=== PATIENT | female | born 1975 | race Caucasian/White ===

== ENCOUNTER → 2017-12-16 07:38 | Outpatient (CLI) | payer OTHER, SELFPAY ==
--- NOTE | 2017-12-16 07:43 | HPBI_ITS ---
MAMMOGRAPHY - BILATERAL SCREENING 3-D NEHA SYNTHESIS REASON FOR EXAM: Female, 42 years old. Bilateral Screening 3-D tomosynthesis PERTINENT HISTORY: No significant family history. TECHNIQUE: 2-D mammograms and 3-D Neha synthesis of the breast (s) were performed. CAD was performed. COMPARISON: None. FINDINGS: The breast composition is composed of scattered fibroglandular density. Scattered benign calcifications are seen. No dense spiculated masses or suspicious microcalcifications are identified. No architectural distortion is identified. There is no skin thickening or retraction. There has been no significant change since the prior study. HPBI/SCREENING MAMM (CAD), BILAT IMPRESSION: No mammographic signs of malignancy. Routine yearly mammograms recommended. ASSESSMENT CATEGORY: BIRADS Category 2: Benign. A letter regarding these results will be sent to the patient by the facility within 30 days. FOLLOW UP RECOMMENDATION: Yearly follow up mammogram recommended. (A) Approximately 10% of breast cancers are not detected by mammography. A normal mammogram should not delay biopsy of a clinically suspicious abnormality. Electronically Signed: Wayne Arellano MD at 10:04 EDT , Service support ,
== END ==
PROVIDERS: Family Provider Family Medicine; PCP Family Medicine; Visit Provider Obstetrics & Gynecology
DX: Z12.31 Encounter for screening mammogram for malignant neoplasm of breast (principal)
CPT/HCPCS: 77063; 77067

== ENCOUNTER → 2018-04-10 07:23 | Outpatient (CLI) | payer OTHER, SELFPAY ==
[2018-04-10 10:10] LABS: Absolute Neutrophil Count 6.1 X10^3/uL (2.0-7.7); Eosinophil# 0.38 X10^3/uL; Eosinophils% 3.7 % (0-5); Hematocrit 43.4 % (37-47); Hemoglobin 14.8 g/dl (12.0-15.0); Lymphocyte % 25.5 % (19-41); Mean Corp Hgb Conc 34.1 g/gl (32-36); Mean Corpuscular Hgb 29.9 pg (27.0-32.0); Mean Corpuscular Volume 87.7 fL (81-99); Mean Platelet Vol. 10.7 fl (6.2-12.0); Monocyte# 0.94 X10^3/uL; Monocyte% 9.2 % (0-10); Neutrophil # 6.11 X10^3/uL (2.7-7.7); Neutrophil % 60.1 % (47-70); Platelet Count 414 K/mm3 (150-450); RBC Distribution Width CV 14.4 % (11.6-14.6); Red Blood Count 4.95 M/mm3 (4.2-5.4); White Blood Count 10.2 K/mm3 (4.4-11.0)
[2018-04-10 10:13] LABS: POSITIVE COUNT NO; POSITIVE DIFFERENTIAL NO; POSITIVE MORPHOLOGY NO
[2018-04-10 10:39] LABS: ALB/GLOB Ratio 0.8 RATIO (0.9-2.4); AST(SGOT) 25 U/L (15-37); Alanine Aminotransfer ALT/SGPT 43 U/L (13-56); Albumin, Serum 3.5 g/dL (3.2-5.0); Alkaline Phosphatase 81 U/L (45-117); Anion Gap 8 (5-15); BUN 8 mg/dL (7-18); BUN/Creat Ratio 12.2 RATIO (10-20); Calcium,Total 8.8 mg/dL (8.5-10.1); Chloride 108 mmol/L (98-107); Creatinine, Serum 0.66 mg/dL (0.55-1.02); EST Glomerular Filtration Rate 104 mL/min (>60); Est Glom Filt Rate - Afr Amer 126 mL/min (>60); Globulin 4.5 g/dL (2.2-4.2); Glucose 91 mg/dL (74-106); Iron 69 ug/dL (50-170); Potassium 3.9 mmol/L (3.5-5.1); Sodium Level 139 mmol/L (136-145); T4 Free Direct 1.28 ng/dL (0.76-1.46); Thyroid Stim Hormone (TSH) 1.36 uIU/mL (0.358-3.74)
[2018-04-11 08:10] LABS: Vitamin B12 527 pg/mL (211-911); Vitamin D,25 Hydroxy 20.3 ng/mL (29.95-100.01)
== END ==
PROVIDERS: Family Provider Family Medicine; PCP Family Medicine; Visit Provider Family Medicine
DX: R53.83 Other fatigue (principal); E03.9 Hypothyroidism, unspecified; E78.5 Hyperlipidemia, unspecified; E55.9 Vitamin D deficiency, unspecified; E53.8 Deficiency of other specified B group vitamins; D50.9 Iron deficiency anemia, unspecified
CPT/HCPCS: 36415; 80053; 82306; 82607; 83540; 84439; 84443; 85025

== ENCOUNTER → 2018-07-02 08:51 | Outpatient (CLI) | payer OTHER, SELFPAY ==
--- NOTE | 2018-07-02 08:57 | BD_ITS ---
STUDY: DUAL ENERGY X-RAY ABSORPTIOMETRY / DXA REASON FOR EXAM: Female, 43 years old. Hormone replacement TECHNIQUE: Bone Mineral Density (BMD) measurements of lumbar spine and bilateral hips were obtained. COMPARISON: None. FINDINGS: Lumbar Spine (L1-L4): g/cm2 (0.996) / T-score (-1.7) / Z-score (-1.7) Findings are suggestive of osteopenia with a moderate fracture risk. Left Femur Total: g/cm2 (1.186) / T-score (1.4) / Z-score (1.7) Left Femoral Neck: g/cm2 (0.978) / T-score (-0.4) / Z-score (0.1) Right Femur Total: g/cm2 (1.204) / T-score (1.6) / Z-score (1.8) Right Femoral Neck: g/cm2 1.016) / T-score (-0.2) / Z-score (0.4) BD/Dexa Bone Density Study IMPRESSION: The patient is considered normal as outlined below according to World [place] Organization (WHO) criteria with a low fracture risk. Reference Information: The T-score is the number of standard deviations above or below the standard which is normal for young adults at their peak bone mineral density. The World Health Organization (WHO) interprets the T-scores as follows: Above -1 Normal bone density Between -1 and -2.5 Osteopenia Equal to / or below -2.5 Osteoporosis As a practical clinical guideline, osteopenia may be graded as follows: Mild -1 through -1.5 Moderate -1.6 through -2.0 Severe -2.1 through -2.4 The Z-score is the number of standard deviations above or below age-matched controls. A Z-score of less than -1.5 would be considered abnormal. References: 1. NIH Osteoporosis and Related Bone Diseases http://www.osteo.org 2. International Society for Clinical Densitometry http://www.iscd.org 3. National Osteoporosis Foundation http://www.nof.org Electronically Signed: Wayne Arellano MD at 10:18 EDT , Service support ,
== END ==
PROVIDERS: Family Provider Family Medicine; PCP Family Medicine; Referring Provider Obstetrics & Gynecology; Visit Provider Obstetrics & Gynecology
DX: Z13.820 Encounter for screening for osteoporosis (principal); N91.2 Amenorrhea, unspecified; Z79.3 Long term (current) use of hormonal contraceptives
CPT/HCPCS: 77080

== ENCOUNTER → 2018-11-01 09:38 | Outpatient (CLI) | payer OTHER, SELFPAY ==
--- NOTE | 2018-11-01 | LES_PTH ---
PATIENT: LEILA CROW LOC: [facility] U#:[id number] AGE/SX: 50/F ROOM: RE11/01/[address]: Dr. Henrry Bo MD : 1975 BED: DIS: SPEC #: [id number] RECD: 11/01/18 17:17 STATUS: AKOSUA RE #: [id number] SAHARA: 11/01/18 00:[address]: Henrry Bo DEPT: SURGICAL PATHOLOGY RECD BY: Ihsan Colin ENTERED: 11/03/18 08:09 SP TYPE: Lesion OTHR DR: MD Dr. Jodi Braxton DO Tissues: Skin of back, NOS Procedures: Surgery Specimen Level IV Comments: @ Ordering doctor for SUIV edited from to @ by RGOOD at 11/11/18 1005 @ Submitting doctor edited from to DR.[email or web address] Jin by RGOOD at 11/11/18 1005 HEADER OPERATION: Not noted PRE-OP DIAGNOSIS: Enlarging lesion left upper back TISSUE SUBMITTED: Left upper back MICROSCOPIC DIAGNOSIS Left upper back lesion, shave biopsy: Consistent with lentigo. Focal minimal dermal fibrosis. Negative for malignancy. SJ:kisha 11/04/18 COMMENT Multiple levels are examined. Clinical correlation and appropriate follow up are necessary. This case has been reviewed in consultation with Dr. Lamas who concurs with the above diagnosis. MICROSCOPIC DESCRIPTION Slides are reviewed. GROSS DESCRIPTION Received in fixative is one container labeled with the patient's name and designated lesion left upper back. The specimen consists of a light saucedo shave biopsy of skin measuring 0.7 x 0.5 x <0.1 cm. The specimen is inked and totally submitted in one cassette for postfixation sectioning. / AM:kisha 11/03/18 TC:5 CPT: 37981
== END ==
PROVIDERS: PCP Family Medicine; Visit Provider Surgery
DX: L98.9 Disorder of the skin and subcutaneous tissue, unspecified (principal)
CPT/HCPCS: 88305

== ENCOUNTER → 2019-03-09 11:39 | Outpatient (CLI) | payer OTHER, SELFPAY ==
[2018-11-12 17:14] VITALS: BMI 45.3
--- NOTE | 2019-03-09 11:43 | BI_ITS ---
MAMMOGRAPHY - BILATERAL SCREENING REASON FOR EXAM: Female, 43 years old. Routine annual screening examination. PERTINENT HISTORY: Non-contributory. History of bilateral breast reduction surgery. TECHNIQUE: Digital bilateral breast neha (3D mammographic acquisition) in the CC and MLO projections. 2-D mediolateral oblique (MLO) and craniocaudad (CC) views of both breasts were obtained. CAD: Full Field Digital Mammography with Computer Added Detection was performed. COMPARISON: Comparison is made with prior study December 16, 2017. FINDINGS: Breast Composition: The breasts are almost entirely fatty. There are no dominant masses or suspicious calcifications. Dense linear calcification seen in the upper outer quadrant of the right breast most likely secondary to postsurgical changes. No mass lesion or cluster of microcalcifications present. No other significant abnormalities are identified. There has been no significant change since the prior study. BI/SCREEN MAMM (CAD) W/NEHA BILAT IMPRESSION: Stable bilateral screening mammogram. Yearly follow-up mammogram recommended. (A) ASSESSMENT CATEGORY: BIRADS Category 2: Benign. A letter regarding these results will be sent to the patient by the facility within 30 days. Approximately 10% of breast cancers are not detected by mammography. A normal mammogram should not delay biopsy of a clinically suspicious abnormality. [id number] Electronically Signed: Olvin Valencia, at 13:11 EDT , Service support ,
== END ==
PROVIDERS: Family Provider Family Medicine; PCP Family Medicine; Visit Provider Obstetrics & Gynecology
DX: Z12.31 Encounter for screening mammogram for malignant neoplasm of breast (principal)
CPT/HCPCS: 77063; 77067

== ENCOUNTER → 2019-04-08 16:21 | Outpatient (CLI) | payer OTHER, SELFPAY ==
[2018-11-12 17:14] VITALS: BMI 45.3
--- NOTE | 2019-04-08 17:04 | RAD_ITS ---
STUDY: X-RAY - THORACIC SPINE REASON FOR EXAM: Female, 44 years old. Back pain. TECHNIQUE: 2 view(s) of the thoracic spine were obtained. COMPARISON: None. FINDINGS: Normal kyphosis of the thoracic spine. There is no substantial scoliosis. There is multilevel endplate spondylosis of the thoracic vertebrae. There is multilevel disc space narrowing of the thoracic spine. No fractures or dislocations. The soft tissue structures are unremarkable. RAD/Thoracic Spine 2 Views IMPRESSION: No acute abnormality. Mild degenerative changes. Electronically Signed: Fabrizio Wylie MD at 21:43 EDT , Service support ,
== END ==
PROVIDERS: Family Provider Family Medicine; PCP Family Medicine; Referring Provider Family Medicine; Visit Provider Family Medicine
DX: M54.9 Dorsalgia, unspecified (principal); M25.519 Pain in unspecified shoulder
CPT/HCPCS: 72070

== ENCOUNTER → 2019-05-01 14:38 | Outpatient (CLI) | payer OTHER, SELFPAY ==
[2019-05-01 07:34] VITALS: BMI 45.3
[2019-05-01 15:46] LABS: Bacteria 0 SEEN /hpf (None Seen); Mucous, Urine 0 SEEN /hpf (<or=2+); Red Blood Cells-Urine 0 SEEN /hpf (0-5); Squamous Epithelial Cells - UA 0 SEEN /hpf (5-10); White Blood Cells 0 SEEN /hpf (0-5)
[2019-05-01 16:00] LABS: Color, Urine Yellow (Yellow); Glucose, Dipstick Normal (Normal); Ketone-Dipstick Negative (Negative); Leukocyte Esterase-Dipstick Negative /ul (Negative); Nitrite-Dipstick Negative (Negative); Occult Blood-Urine 10 /ul (Negative); Protein-Dipstick Negative (Negative); Specific Gravity, Urine 1.015 (1.002-1.030); Urine Bilirubin Dipstick Negative (Negative); Urine Clarity Clear (Clear); Urine Urobilinogen Normal (Normal)
== END ==
PROVIDERS: Family Provider Family Medicine; PCP Family Medicine; Referring Provider Physician Assistant Surgical; Visit Provider Physician Assistant Surgical
DX: N30.90 Cystitis, unspecified without hematuria (principal)
CPT/HCPCS: 81001; 87086; 87088

== ENCOUNTER → 2019-06-15 07:28 | Outpatient (CLI) | payer OTHER, SELFPAY ==
[2019-05-01 07:34] VITALS: BMI 45.3
[2019-06-15 10:09] LABS: Absolute Lymphocyte Count 2.68 X10^3/uL (0.83-4.51); Absolute Neutrophil Count 4.5 X10^3/uL (2.0-7.7); Basophil% 1.2 % (0-1); Eosinophil# 0.12 X10^3/uL; Eosinophils% 1.4 % (0-5); Hematocrit 44.9 % (37-47); Lymphocyte # 2.68 X10^3/ul (4.0); Lymphocyte % 32.1 % (19-41); Mean Corp Hgb Conc 33.4 g/dL (32-36); Mean Corpuscular Hgb 29.7 pg (27.0-32.0); Mean Corpuscular Volume 88.9 fL (81-99); Mean Platelet Vol. 11.1 fl (6.2-12.0); Monocyte# 0.87 X10^3/uL; Monocyte% 10.4 % (0-10); NRBC Flagged by Analyzer 0 % (0-5); Neutrophil # 4.54 X10^3/uL (2.7-7.7); Neutrophil % 54.4 % (47-70); Platelet Count 347 K/mm3 (150-450); RBC Distribution Width CV 13.7 % (11.6-14.6); RBC Distribution Width SD 44.4 fl (35.1-43.9); Red Blood Count 5.05 M/mm3 (4.2-5.4); White Blood Count 8.4 K/mm3 (4.4-11.0)
[2019-06-15 10:32] LABS: ALB/GLOB Ratio 1.1 RATIO (0.9-2.4); AST(SGOT) 30 U/L (15-37); Alanine Aminotransfer ALT/SGPT 51 U/L (13-56); Albumin, Serum 3.7 g/dL (3.2-5.0); Alkaline Phosphatase 91 U/L (45-117); Anion Gap 9 (5-15); BUN 8 mg/dL (7-18); Chloride 108 mmol/L (98-107); Cholesterol 187 mg/dL (200); Creatinine, Serum 0.72 mg/dL (0.55-1.02); EST Glomerular Filtration Rate 92 mL/min (>60); Est Glom Filt Rate - Afr Amer 112 mL/min (>60); Globulin 3.5 g/dL (2.2-4.2); Glucose 85 mg/dL (74-106); High Density Lipoprotein 39 mg/dL; Potassium 4.2 mmol/L (3.5-5.1); Protein, Total 7.2 g/dL (6.4-8.2); Sodium Level 141 mmol/L (136-145); T4 Free Direct 1.69 ng/dL (0.76-1.46); Thyroid Stim Hormone (TSH) 0.71 uIU/mL (0.358-3.74); Triglycerides 125 mg/dL; Very Low Density Lipoprotein 25 mg/dL (5-40)
[2019-06-15 10:53] LABS: Vitamin D,25 Hydroxy 60.3 ng/mL (29.95-100.01)
== END ==
PROVIDERS: Family Provider Family Medicine; PCP Family Medicine; Referring Provider Family Medicine; Visit Provider Family Medicine
DX: Z00.00 Encounter for general adult medical examination without abnormal findings (principal); E03.9 Hypothyroidism, unspecified; E55.9 Vitamin D deficiency, unspecified; R53.83 Other fatigue
CPT/HCPCS: 36415; 80053; 80061; 82306; 84439; 84443; 84481; 85025

== ENCOUNTER → 2019-08-16 15:25 | Outpatient (CLI) | payer OTHER, SELFPAY ==
[2019-08-16 09:55] VITALS: BMI 45.3
[2019-08-16 15:35] LABS: Color, Urine Yellow (Yellow); Glucose, Dipstick Normal (Normal); Ketone-Dipstick 5 mg/dl (Negative); Leukocyte Esterase-Dipstick 500 /ul (Negative); Nitrite-Dipstick Positive (Negative); Occult Blood-Urine 150 /ul (Negative); Protein-Dipstick 100 mg/dl (Negative); Urine Clarity Sl. Cloudy (Clear); Urine Urobilinogen Normal (Normal)
[2019-08-16 15:41] LABS: Urine Bilirubin Dipstick 1 mg/dL (Negative)
[2019-08-16 15:43] LABS: White Blood Cells 50-100 SEEN /hpf (0-5)
[2019-08-16 15:44] LABS: Bacteria 3+ /hpf (None Seen); Mucous, Urine 3+ /hpf (<or=2+); Red Blood Cells-Urine 0-5 SEEN /hpf (0-5); Squamous Epithelial Cells - UA 25-50 SEEN /hpf (5-10)
== END ==
PROVIDERS: Family Provider Family Medicine; PCP Family Medicine; Visit Provider Physician Assistant Medical
DX: R10.9 Unspecified abdominal pain (principal); R39.15 Urgency of urination
CPT/HCPCS: 81001; 87077; 87086; 87088; 87186

== ENCOUNTER → 2020-03-28 10:43 | Outpatient (CLI) | payer OTHER, SELFPAY ==
[2019-08-16 09:55] VITALS: BMI 45.3
--- NOTE | 2020-03-28 10:46 | BI_ITS ---
MAMMOGRAPHY - BILATERAL SCREENING REASON FOR EXAM: Female, 44 years old. Routine annual screening examination. PERTINENT HISTORY: Non-contributory. History of prior bilateral breast reduction surgery. TECHNIQUE: Digital bilateral breast neha (3D mammographic acquisition) in the CC and MLO projections. 2-D mediolateral oblique (MLO) and craniocaudad (CC) views of both breasts were obtained. CAD: Full Field Digital Mammography with Computer Added Detection was performed. COMPARISON: Comparison is made with prior study dated March 09, 2019 and December 16, 2017. FINDINGS: Breast Composition: The breasts are almost entirely fatty. There are no dominant masses or suspicious calcifications. Stable dense linear calcification in the upper outer quadrant of the right breast most likely secondary to postoperative changes. Stable benign-appearing bilateral axillary lymph nodes. No other significant abnormalities are identified. There has been no significant change since the prior study. BI/SCREEN MAMM (CAD) W/NEHA BILAT IMPRESSION: Stable bilateral screening mammogram. Yearly follow-up mammogram recommended. (A) ASSESSMENT CATEGORY: BIRADS Category 2: Benign. A letter regarding these results will be sent to the patient by the facility within 30 days. Approximately 10% of breast cancers are not detected by mammography. A normal mammogram should not delay biopsy of a clinically suspicious abnormality. [id number] Electronically Signed: Olvin Valencia, at 12:57 EDT , Service support ,
== END ==
PROVIDERS: PCP Family Medicine; Referring Provider Obstetrics & Gynecology; Visit Provider Obstetrics & Gynecology
DX: Z12.31 Encounter for screening mammogram for malignant neoplasm of breast (principal)
CPT/HCPCS: 77063; 77067

== ENCOUNTER → 2020-06-13 07:37 | Outpatient (CLI) | payer OTHER, SELFPAY ==
[2019-08-16 09:55] VITALS: BMI 45.3
[2020-06-13 09:50] LABS: Absolute Lymphocyte Count 2.81 X10^3/uL (0.83-4.51); Absolute Neutrophil Count 5.1 X10^3/uL (2.0-7.7); Basophil# 0.08 X10^3/uL; Basophil% 0.9 % (0-1); Eosinophils% 2.2 % (0-5); Hematocrit 43.5 % (37-47); Hemoglobin 14.5 g/dL (12.0-15.0); Lymphocyte # 2.81 X10^3/ul (4.0); Lymphocyte % 30.8 % (19-41); Mean Corp Hgb Conc 33.3 g/dL (32-36); Mean Corpuscular Hgb 29.5 pg (27.0-32.0); Mean Corpuscular Volume 88.6 fL (81-99); Mean Platelet Vol. 10.6 fl (6.2-12.0); Monocyte# 0.92 X10^3/uL; Monocyte% 10.1 % (0-10); NRBC Flagged by Analyzer 0 % (0-5); Neutrophil # 5.08 X10^3/uL (2.7-7.7); Neutrophil % 55.6 % (47-70); Platelet Count 388 K/mm3 (150-450); RBC Distribution Width CV 13.5 % (11.6-14.6); Red Blood Count 4.91 M/mm3 (4.2-5.4); White Blood Count 9.1 K/mm3 (4.4-11.0)
[2020-06-13 10:07] LABS: Vitamin D,25 Hydroxy 51.1 ng/mL
[2020-06-13 10:16] LABS: ALB/GLOB Ratio 0.9 RATIO (0.9-2.4); AST(SGOT) 17 U/L (15-37); Alanine Aminotransfer ALT/SGPT 27 U/L (13-56); Albumin, Serum 3.7 g/dL (3.2-5.0); Alkaline Phosphatase 98 U/L (45-117); Anion Gap 7 (5-15); BUN 8 mg/dL (7-18); Calcium,Total 8.9 mg/dL (8.5-10.1); Chloride 107 mmol/L (98-107); Cholesterol 197 mg/dL (200); Creatinine, Serum 0.67 mg/dL (0.55-1.02); EST Glomerular Filtration Rate 101 mL/min (>60); Est Glom Filt Rate - Afr Amer 122 mL/min (>60); Free T3 2.8 pg/mL (2.18-3.98); Globulin 4.3 g/dL (2.2-4.2); Glucose 88 mg/dL (74-106); High Density Lipoprotein 36 mg/dL; Potassium 3.9 mmol/L (3.5-5.1); Sodium Level 138 mmol/L (136-145); T4 Free Direct 1.19 ng/dL (0.76-1.46); Thyroid Stim Hormone (TSH) 0.35 uIU/mL (0.358-3.74); Triglycerides 124 mg/dL; Very Low Density Lipoprotein 25 mg/dL (5-40)
== END ==
PROVIDERS: PCP Family Medicine; Referring Provider Family Medicine; Visit Provider Family Medicine
DX: Z00.00 Encounter for general adult medical examination without abnormal findings (principal); E03.9 Hypothyroidism, unspecified; E55.9 Vitamin D deficiency, unspecified; R53.83 Other fatigue
CPT/HCPCS: 36415; 80053; 80061; 82306; 84439; 84443; 84481; 85025

== ENCOUNTER 2021-03-22 17:30 | Outpatient (RCR) | payer OTHER, SELFPAY ==
[2019-08-16 09:55] VITALS: BMI 45.3
--- NOTE | 2021-03-09 18:14 | HP.PTEVAL_ITS ---
Patient's Visit Information LEILA CROW is a 45 year old F referred to Physical Therapy by Dr. Jodi Olson DO with a diagnosis of cervical radiculopathy. Date of Evaluation: 03/09/21 Physical Therapist: Janusz Espinal, DPT, OCS, CSCS - Visit Plan Frequency: 2x /Week Duration: 4-6 Weeks Plan: 2x/week for 3-4 weeks for. 1. cervical ret ext based Argelia based neck ex adn progression of forces, mobs ext to lower c/s as needed. Postural correction adn ergonomics. L UT stretching and cervical/postural strengthening to HEP. TENS adn MH as needed. - Subjective Neck was hurting for no obvious reason. Has been hurting for over a month Insidious onset. Maybe due to picking up salt bags. Pain is L neck and into shoulder adelaida and into back of arm adn into lateral forearm, constant ache and keeps her up at night. aleeve adn ibuprofen help Hemp cream helps. Wakes up often at night with pain and uses hemp cream to get back to sleep. 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 Ache is 8/10, 10/10 middle of night. Worse with activity like dishes and house work. Missed some work when this first started. has high pain tolerance. Activities at home are pretty normal but has to take breaks from cleaning. - Pain neck pain. Pain Intensity (Out of 10): 8 Pain Intensity Range: 5, 8 - Objective Baseline 0/10 ,. protrsuion: NE, 5/10 ext 35 degreees. retraction repeated:NE 45 with 5/10 pain. retraction ext: improving ROM measurements, 60 ext and 4/10 pain. cervical aROM 35 degree adn painful ext, rotation 78 and painfree, L SB hurts R side but good motion. UE AROM WFL adn strength without pain or myotomal abnormalities. reflexes 2/3. Sensation UE WNL to gross light touch. - Goals Goal 1:: Good posture and ergonomics without VC Goal Time Frame: 4-6 Weeks Goal 2:: Full AROM cervical spine without pain Goal Time Frame: 2-4 Weeks Goal 3:: Pt feel 90% back to normal with 1/10 neck pain at worst. Goal Time Frame: 2-4 Weeks Goal 4:: sleep without waking at night due to pain. Goal Time Frame: 2-4 Weeks - Rehabilitation Potential Physical Therapy Diagnosis: cervical disc derangement likely with reduced ROM and pain. Rehabilitation Potential: Good - Anticipated Interventions Patient/Client Instruction: Educate patient on: Condition, Plan of Care For the Purpose of:: To decrease pain, To increase ROM, To increase tolerance to activity/condition/position, To improve ability of physical actions for home/community/work/leisure Therapeutic Exercise to Include: Strength training, Postural training, Flexibilty training, Passive ROM, Active ROM, Argelia Exercises For the Purpose of:: To decrease pain, To increase ROM, To increase tolerance to activity/condition/position, To decrease level of supervision to perform tasks, To improve ability of physical actions for home/community/work/leisure Manual Therapy Techniques to Include: Mobilization, Soft tissue mobilization For the Purpose of:: To decrease pain, To increase ROM TENS: Yes Thermo therapy (hot pack): Yes For the Purpose of:: To decrease pain, To increase ROM Thank you for the opportunity to evaluate your patient. For Medicare and Medicare HMO plans, please review the plan of care and approve it. It will need to be FAXED BACK to us at [phone] for Medicare purposes. For Medicare only, by signing this I certify the plan of care. Please let me know if there are questions or concerns regarding this plan of care. Physician Signature: Date:
--- NOTE | 2021-05-04 12:23 | HP.PT.NRP ---
LEILA CROW was seen in my office for initial evaluation on 03/09/21. The following Plan of Care was established for this patient: Initial Frequency: 2x /Week Initial Duration: 4-6 Weeks Patient/Client Instruction: Educate patient on: Condition, Plan of Care For the Purpose of:: To decrease pain, To increase ROM, To increase tolerance to activity/condition/position, To improve ability of physical actions for home/community/work/leisure Therapeutic Exercise to Include: Strength training, Postural training, Flexibilty training, Passive ROM, Active ROM, Alize Exercises For the Purpose of:: To decrease pain, To increase ROM, To increase tolerance to activity/condition/position, To decrease level of supervision to perform tasks, To improve ability of physical actions for home/community/work/leisure Manual Therapy Techniques to Include: Mobilization, Soft tissue mobilization For the Purpose of:: To decrease pain, To increase ROM TENS: Yes Thermo therapy (hot pack): Yes For the Purpose of:: To decrease pain, To increase ROM This patient was last seen in our office 03/22/21. Pertinent comments regarding their Physical therapy will appear below: Pt seen four visits of POC. He cancelled the rest in favor of seeing orthopedic doctor. at this point, it has been over 4 weeks adn I will discontinue due to nonattendance. At this point I will be discontinuing this patient from physical therapy. I would be happy to see this patient again in the future if found appropriate by the physician. Thank you! Janusz Espinal, DPT, OCS, CSCS Balance/Gait/Functional tests - Balance/Special Test Scores Oswestry Neck Score: 13
== END 2021-03-22 19:00 | disposition home or self-care (01) ==
LOC: PT 17:30
PROVIDERS: PCP Family Medicine; Referring Provider Family Medicine; Visit Provider Family Medicine
DX: M54.12 Radiculopathy, cervical region (principal)
CPT/HCPCS: 97014; 97110; 97140; 97162; G0283

== ENCOUNTER → 2021-07-10 06:57 | Outpatient (CLI) | payer OTHER, SELFPAY ==
--- NOTE | 2021-07-10 07:00 | BI_ITS ---
MAMMOGRAPHY - BILATERAL SCREENING REASON FOR EXAM: Female, 46 years old. Routine annual screening examination. PERTINENT HISTORY: Non-contributory. History of prior bilateral breast reduction surgery. TECHNIQUE: Digital bilateral breast neha (3D mammographic acquisition) in the CC and MLO projections. 2-D mediolateral oblique (MLO) and craniocaudad (CC) views of both breasts were obtained. CAD: Full Field Digital Mammography with Computer Added Detection was performed. COMPARISON: Comparison is made with prior examination dated 03/28/2020 and 03/09/2019. FINDINGS: Breast Composition: The breasts are almost entirely fatty. There are no dominant masses or suspicious calcifications. Stable dense linear calcification in the upper outer quadrant of the right breast most likely secondary to prior breast surgery. Stable small benign-appearing bilateral axillary lymph nodes. No other significant abnormalities are identified. There has been no significant change since the prior study. BI/SCRN MAMM (CAD)W/NEHA BILAT IMPRESSION: Stable bilateral screening mammogram. Yearly follow-up mammogram recommended. (A) ASSESSMENT CATEGORY: BIRADS Category 2: Benign. A letter regarding these results will be sent to the patient by the facility within 30 days. Approximately 10% of breast cancers are not detected by mammography. A normal mammogram should not delay biopsy of a clinically suspicious abnormality. [id number] Electronically Signed: Olvin Valencia MD at 8:40 EDT , Service support ,
== END ==
PROVIDERS: PCP Family Medicine; Referring Provider Obstetrics & Gynecology; Visit Provider Obstetrics & Gynecology
DX: Z12.31 Encounter for screening mammogram for malignant neoplasm of breast (principal)
CPT/HCPCS: 77063; 77067

== ENCOUNTER → 2021-07-12 08:07 | Outpatient (CLI) | payer OTHER, SELFPAY ==
[2021-07-12 10:38] LABS: Free T3 2.6 pg/mL (2.18-3.98); T4 Free Direct 1.15 ng/dL (0.76-1.46); Thyroid Stim Hormone (TSH) 1.45 uIU/mL (0.358-3.74)
[2021-07-12 12:17] LABS: Vitamin D,25 Hydroxy 70.3 ng/mL
== END ==
PROVIDERS: PCP Family Medicine; Referring Provider Family Medicine; Visit Provider Family Medicine
DX: Z00.00 Encounter for general adult medical examination without abnormal findings (principal); E03.9 Hypothyroidism, unspecified; E55.9 Vitamin D deficiency, unspecified; R53.83 Other fatigue
CPT/HCPCS: 36415; 82306; 84439; 84443; 84481

== ENCOUNTER → 2022-09-10 | Outpatient (CLI) | payer OTHER, SELFPAY ==
[2022-09-10 09:55] LABS: Absolute Lymphocyte Count 2.42 X10^3/uL (0.83-4.51); Absolute Neutrophil Count 5.2 X10^3/uL (2.0-7.7); Basophil# 0.11 X10^3/uL; Basophil% 1.3 % (0-1); Eosinophil# 0.21 X10^3/uL; Eosinophils% 2.4 % (0-5); Hematocrit 43.2 % (37-47); Hemoglobin 14.2 g/dL (12.0-15.0); Lymphocyte # 2.42 X10^3/ul (0.83-4.51); Lymphocyte % 27.5 % (19-41); Mean Corp Hgb Conc 32.9 g/dL (32-36); Mean Corpuscular Hgb 29.2 pg (27.0-32.0); Mean Corpuscular Volume 88.9 fL (81-99); Mean Platelet Vol. 10.9 fl (6.2-12.0); Monocyte# 0.86 X10^3/uL; Monocyte% 9.8 % (0-10); NRBC Flagged by Analyzer 0 % (0-5); Neutrophil # 5.15 X10^3/uL (2.7-7.7); Neutrophil % 58.4 % (47-70); Platelet Count 387 K/mm3 (150-450); RBC Distribution Width CV 14.5 % (11.6-14.6); Red Blood Count 4.86 M/mm3 (4.2-5.4); White Blood Count 8.8 K/mm3 (4.4-11.0)
[2022-09-10 10:12] LABS: Vitamin D,25 Hydroxy 32.2 ng/mL
[2022-09-10 10:24] LABS: AST(SGOT) 32 U/L (15-37); Alanine Aminotransfer ALT/SGPT 53 U/L (13-56); Albumin, Serum 3.6 g/dL (3.2-5.0); Alkaline Phosphatase 122 U/L (45-117); Anion Gap 10 (5-15); BUN 8 mg/dL (7-18); BUN/Creat Ratio 12.1 RATIO (10-20); Calcium,Total 9.2 mg/dL (8.5-10.1); Chloride 108 mmol/L (98-107); Cholesterol 192 mg/dL (200); Creatinine, Serum 0.66 mg/dL (0.55-1.02); EST Glomerular Filtration Rate 101 mL/min (>60); Est Glom Filt Rate - Afr Amer 122 mL/min (>60); Free T3 2.7 pg/mL (2.18-3.98); Globulin 3.7 g/dL (2.2-4.2); Glucose 90 mg/dL (74-106); High Density Lipoprotein 39 mg/dL; Protein, Total 7.3 g/dL (6.4-8.2); Sodium Level 139 mmol/L (136-145); T4 Free Direct 1.33 ng/dL (0.76-1.46); Thyroid Stim Hormone (TSH) 1.59 uIU/mL (0.358-3.74); Triglycerides 110 mg/dL; Very Low Density Lipoprotein 22 mg/dL (5-40)
== END | disposition home or self-care (01) ==
LOC: MTLAB 07:02
PROVIDERS: PCP Family Medicine; Referring Provider Family Medicine; Visit Provider Family Medicine
DX: E03.9 Hypothyroidism, unspecified (principal); E55.9 Vitamin D deficiency, unspecified; Z51.81 Encounter for therapeutic drug level monitoring; R53.83 Other fatigue
CPT/HCPCS: 36415; 80053; 80061; 82306; 84439; 84443; 84481; 85025

== ENCOUNTER → 2022-09-20 | Outpatient (CLI) | payer OTHER, SELFPAY ==
[2022-09-20 12:25] LABS: Estradiol 16.9 pg/mL; Follicle Stimulating Hormone 46.4 mIU/mL
== END | disposition home or self-care (01) ==
LOC: BFHLAB 09:25
PROVIDERS: PCP Family Medicine; Visit Provider Family Medicine
DX: N93.8 Other specified abnormal uterine and vaginal bleeding (principal)
CPT/HCPCS: 36415; 82670; 83001; 83002

== ENCOUNTER → 2022-12-03 | Outpatient (CLI) | payer OTHER, SELFPAY ==
--- NOTE | 2022-12-03 10:36 | BI_ITS ---
MAMMOGRAPHY - BILATERAL SCREENING 3-D TOMOSYNTHESIS REASON FOR EXAM: Female, 47 years old. Routine screening PERTINENT HISTORY: No significant family history. History of reduction mammoplasty TECHNIQUE: 2-D mammograms and 3-D Tomosynthesis of the breast (s) were performed. CAD was performed. COMPARISON: 07/10/2021, 03/28/2020 FINDINGS: The breast composition is almost entirely fat. Stable postsurgical changes and calcifications in the right breast. Scattered benign calcifications are seen. No dense spiculated masses or suspicious microcalcifications are identified. No architectural distortion is identified. There is no skin thickening or retraction. There has been no significant change since the prior study. BI/SCRN MAMM (CAD)W/NEHA BILAT IMPRESSION: No mammographic signs of malignancy. Routine yearly mammograms recommended. ASSESSMENT CATEGORY: BIRADS Category 1: Negative. A letter regarding these results will be sent to the patient by the facility within 30 days. FOLLOW UP RECOMMENDATION: Yearly follow up mammogram recommended. (A) Approximately 10% of breast cancers are not detected by mammography. A normal mammogram should not delay biopsy of a clinically suspicious abnormality. Electronically Signed: Wayne Arellano MD at 11:56 EDT ,
== END | disposition home or self-care (01) ==
LOC: OPBI 10:35
PROVIDERS: PCP Family Medicine; Referring Provider Obstetrics & Gynecology; Visit Provider Obstetrics & Gynecology
DX: Z12.31 Encounter for screening mammogram for malignant neoplasm of breast (principal)
CPT/HCPCS: 77063; 77067

== ENCOUNTER → 2023-01-16 | Outpatient (CLI) | payer OTHER, SELFPAY ==
[2023-01-16 10:23] LABS: Bacteria 0 SEEN /hpf (None Seen); Mucous, Urine 0 SEEN /hpf (<or=2+)
[2023-01-16 10:30] LABS: Color, Urine Yellow (Yellow); Glucose, Dipstick Normal (Normal); Ketone-Dipstick Negative (Negative); Leukocyte Esterase-Dipstick 100 /ul (Negative); Nitrite-Dipstick Negative (Negative); Occult Blood-Urine Negative /ul (Negative); Protein-Dipstick Negative (Negative); Urine Bilirubin Dipstick Negative (Negative); Urine Clarity Clear (Clear); Urine Urobilinogen Normal (Normal); Urine pH 6.5 (5.0 - 8.0)
[2023-01-16 11:03] LABS: Red Blood Cells-Urine 0-5 SEEN /hpf (0-5); Squamous Epithelial Cells - UA 0-5 SEEN /hpf (5-10); White Blood Cells 0-5 SEEN /hpf (0-5)
== END | disposition home or self-care (01) ==
LOC: LABSPEC 10:16
PROVIDERS: PCP Family Medicine; Referring Provider Physician Assistant Surgical; Visit Provider Physician Assistant Surgical
DX: N39.0 Urinary tract infection, site not specified (principal)
CPT/HCPCS: 81001; 87086; 87088

== ENCOUNTER → 2023-09-17 | Outpatient (CLI) | payer OTHER, SELFPAY ==
[2023-09-17 12:13] LABS: Absolute Lymphocyte Count 2.79 X10^3/uL (0.83-4.51); Absolute Neutrophil Count 5.1 X10^3/uL (2.0-7.7); Basophil# 0.15 X10^3/uL; Basophil% 1.6 % (0-1); Eosinophil# 0.35 X10^3/uL; Eosinophils% 3.8 % (0-5); Hematocrit 45.8 % (37-47); Hemoglobin 15.9 g/dL (12.0-15.0); Lymphocyte # 2.79 X10^3/ul (0.83-4.51); Mean Corp Hgb Conc 34.7 g/dL (32-36); Mean Corpuscular Hgb 30.6 pg (27.0-32.0); Mean Corpuscular Volume 88.1 fL (81-99); Mean Platelet Vol. 10.8 fl (6.2-12.0); Monocyte# 0.88 X10^3/uL; Monocyte% 9.5 % (0-10); NRBC Flagged by Analyzer 0 % (0-5); Neutrophil # 5.08 X10^3/uL (2.7-7.7); Neutrophil % 54.6 % (47-70); Platelet Count 353 K/mm3 (150-450); RBC Distribution Width CV 13.8 % (11.6-14.6); RBC Distribution Width SD 44.5 fl (35.1-43.9); White Blood Count 9.3 K/mm3 (4.4-11.0)
[2023-09-17 12:36] LABS: Vitamin D,25 Hydroxy 32.9 ng/mL
[2023-09-17 12:44] LABS: ALB/GLOB Ratio 0.8 RATIO (0.9-2.4); AST(SGOT) 27 U/L (15-37); Alanine Aminotransfer ALT/SGPT 43 U/L (13-56); Albumin, Serum 3.5 g/dL (3.2-5.0); Alkaline Phosphatase 129 U/L (45-117); Anion Gap 6 (5-15); BUN 9 mg/dL (7-18); BUN/Creat Ratio 14.6 RATIO (10-20); Calcium,Total 8.7 mg/dL (8.5-10.1); Chloride 111 mmol/L (98-107); Cholesterol 217 mg/dL (200); Creatinine, Serum 0.62 mg/dL (0.55-1.02); EST Glomerular Filtration Rate 109 mL/min (>60); Est Glom Filt Rate - Afr Amer 132 mL/min (>60); Free T3 2.8 pg/mL (2.18-3.98); Globulin 4.3 g/dL (2.2-4.2); Glucose 81 mg/dL (74-106); High Density Lipoprotein 47 mg/dL; Potassium 3.8 mmol/L (3.5-5.1); Protein, Total 7.8 g/dL (6.4-8.2); Sodium Level 140 mmol/L (136-145); T4 Free Direct 1.19 ng/dL (0.76-1.46); Thyroid Stim Hormone (TSH) 1.03 uIU/mL (0.358-3.74); Triglycerides 107 mg/dL; Very Low Density Lipoprotein 21 mg/dL (5-40)
== END | disposition home or self-care (01) ==
LOC: MTLAB 09:59
PROVIDERS: PCP Family Medicine; Referring Provider Family Medicine; Visit Provider Family Medicine
DX: Z00.00 Encounter for general adult medical examination without abnormal findings (principal); E55.9 Vitamin D deficiency, unspecified; E03.9 Hypothyroidism, unspecified
CPT/HCPCS: 36415; 80053; 80061; 82306; 84439; 84443; 84481; 85025

== ENCOUNTER → 2023-12-09 | Outpatient (CLI) | payer OTHER, SELFPAY ==
--- NOTE | 2023-12-09 10:24 | BI_ITS ---
MAMMOGRAPHY - BILATERAL SCREENING REASON FOR EXAM: Female, 48 years old. Routine annual screening examination. PERTINENT HISTORY: Non-contributory. Remote bilateral breast reduction surgery. TECHNIQUE: Digital bilateral breast neha (3D mammographic acquisition) in the CC and MLO projections. 2-D mediolateral oblique (MLO) and craniocaudad (CC) views of both breasts were obtained. CAD: Full Field Digital Mammography with Computer Added Detection was performed. COMPARISON: Comparison is made with prior study December 03, 2022 and July 10, 2021. FINDINGS: Breast Composition: The breasts are almost entirely fatty. There are no dominant masses or suspicious calcifications. Stable dystrophic calcification seen in the upper lateral aspect of the right breast. Stable fat-containing bilateral axillary lymph nodes. No other significant abnormalities are identified. There has been no significant change since the prior study. BI/SCRN MAMM (CAD)W/NEHA BILAT IMPRESSION: Stable bilateral screening mammogram. Yearly follow-up mammogram recommended. (A) ASSESSMENT CATEGORY: BIRADS Category 2: Benign. A letter regarding these results will be sent to the patient by the facility within 30 days. Approximately 10% of breast cancers are not detected by mammography. A normal mammogram should not delay biopsy of a clinically suspicious abnormality. [id number] Electronically Signed: Olvin Valencia MD at 11:19 EDT ,
== END | disposition home or self-care (01) ==
LOC: OPBI 10:23
PROVIDERS: PCP Family Medicine; Referring Provider Obstetrics & Gynecology; Visit Provider Obstetrics & Gynecology
DX: Z12.31 Encounter for screening mammogram for malignant neoplasm of breast (principal)
CPT/HCPCS: 77063; 77067

== ENCOUNTER → 2024-01-11 | Outpatient (CLI) | payer OTHER, SELFPAY ==
[2024-01-11 11:18] LABS: Free T3 2.5 pg/mL (2.18-3.98); T4 Free Direct 1.17 ng/dL (0.76-1.46); Thyroid Stim Hormone (TSH) 1.31 uIU/mL (0.358-3.74)
== END | disposition home or self-care (01) ==
LOC: LAB 09:01
PROVIDERS: PCP Family Medicine; Referring Provider Family Medicine; Visit Provider Family Medicine
DX: E03.9 Hypothyroidism, unspecified (principal)
CPT/HCPCS: 36415; 84439; 84443; 84481

== ENCOUNTER → 2024-03-17 | Outpatient (CLI) | payer OTHER, SELFPAY | END | disposition home or self-care (01) | LOC: LABSPEC 12:52 | PROVIDERS: PCP Family Medicine; Referring Provider Physician Assistant; Visit Provider Physician Assistant | DX: R30.0 Dysuria (principal) | CPT/HCPCS: 87086; 87088; 87186 ==

== ENCOUNTER 2024-05-18 06:23 | Emergency (ER) | payer OTHER, SELFPAY ==
[2024-05-18 06:25] VITALS: BP 121/78; PULSE 86; RESP 16; TEMP 36.8; O2SAT 95; BMI 43.2
--- NOTE | 2024-05-18 07:12 | EDS_ITS ---
HPI History of Present Illness Chief Complaint: Lower Extremity Injury Detail of Chief Complaint: Left knee pain status post fall down 6 steps yesterday Informant: patient Occured/Mechanism Mechanism/Context: Yes injury, Yes blunt trauma and Yes fall Comment: Detailed under the chief complaint. Onset/Context/Timing Onset: Yesterday Context: Sudden Onset Timing: Continuous Current Severity: Mild Maximum Severity: Moderate Worsened by: Walking, flexion extension and palpation medially Relieved by: Rest Associated Symptoms Associated Symptoms: Negative for Parasthesia, Weakness or Loss of Funtion Narrative Narrative: Patient is a 49-year-old woman. She has history of hypothyroidism. She fell down sick steps yesterday. She landed on her right knee. Did not complain of right knee pain. She complains of left knee pain medially. She denies any other symptoms. Patient states she has been applying ice and taking NSAIDs. She does not want any pain medicine. She denies prior injury. There is no complaint of paresthesia, anesthesia or motor weakness. Prior similar symptoms: No Recent Illness/Hospitalization: No PFSH PFSH Medical History Post-menopausal Thyroid disease Frequent headaches Anemia Stomach ulcer Home Medications ?Medication ?Instructions ?Recorded ?Last Taken ?Type levothyroxine 100 mcg tablet 100 mcg PO QDAY 03/17/24 Unknown History Allergy/AdvReac Type Severity Reaction Status Date / Time azithromycin (From Zithromax) AdvReac Severe Nausea Verified 03/17/24 09:11 Family History Mother Lung cancer Other Hypertension Surgical History History of cholecystectomy History of delivery Hx of breast reduction, elective History of tonsillectomy Social History Smoking Status: Never smoker alcohol intake: never ROS ROS ED Integumentary Reports Abrasions and other Details: Abrasion inferior and lateral patella of the right knee. Neurologic Neurologic: Denies paresthesias or weakness Hematologic/Lymphatic Hematologic/Lymphatic: Denies easy bleeding or easy bruising EXAM Physical Exam Const Vital Signs: 05/18/24 06:25 Temperature 98.2 F Temperature Source Oral Pulse Rate 86 Respiratory Rate 16 Blood Pressure 121/78 H Blood Pressure Mean 92 Pulse Ox 95 Oxygen Delivery Method Room Air Positive well nourished and well developed General Appearance ED: well developed and NAD HEENT Reports moist mucous membranes normocephalic and atraumatic Eyes Eyes Narrative: Extract muscles intact. Resp normal respiratory effort Cardio regular rate and regular rhythm Extremity full ROM; Negative for normal to inspection Extremity Narrative: There is an abrasion noted lateral and inferior to the patella of the right knee. There is no swelling. Patient's left knee does not appear swollen. There is pain ovation over the medial collateral ligament. Patient is able to extend 100 and a degrees and hold against gravity. She able to flex to 90 degrees. She complains of pain at approximately 100 degrees. Patellas not blottable. There is no effusion. There is no joint line tenderness. Sanford's test was negative. Modified Sebas's test was negative. She had no joint line tenderness. Varus valgus stress testing caused pain medially. There may be slight laxity compared to the uninjured knee. DP and PT pulse are palpable. Neuro oriented x3, CN's II-XII intact bilaterally and moves all extremities Sensorium / Orientation: alert Psych mental status grossly normal Skin Trauma: abrasion MDM MDM MDM Narrative Medical decision making narrative: X-ray of the right knee was obtained to determine if there is a small effusion or prolonged fracture associated with the medial collateral ligament injury. Patient was offered pain medicine. She declined. She states the ibuprofen she is taking does help. Radiography Chest X-Ray - ED: Read by ED Physician (4 view x-ray of the left knee reveals no fracture, subluxation dislocation. The patella is not high riding. There is no acute abnormality noted on my independent interpretation at 0738.) Discharge Plan Triage Chief Complaint: Lower Extremity Injury ED Provider: Jeramy De Jesus Dx/Rx/DC Orders Clinical Impression: Sprain of medial collateral ligament of left knee, initial encounter, Abrasion, right knee, initial encounter, Fall on or from stairs or steps as cause of accidental injury in trade or service area as place of occurrence Prescriptions: No Action levothyroxine 100 mcg tablet 100 mcg PO QDAY Primary Care Provider: Jodi Olson Referrals: Jodi Olson DO [Primary Care Provider] - 1 Week if not improving Activity Restrictions/Additional Instructions: 1. Continue applying ice. Apply ice 6-10 times a day. 2. Dose of ibuprofen would be 4 [id number] pills every 8 hours for the next 3 to 5 days. 3. You may be sore for an additional 3 to 5 days if not longer. Print Language: Citizen Of [place] Disposition Disposition: Home, Self Care
--- NOTE | 2024-05-18 07:30 | RAD_ITS ---
STUDY: X-RAY - LEFT KNEE REASON FOR EXAM: Female, 49 years old. Injury/Pain TECHNIQUE: 4 views of the left knee. COMPARISON: None. FINDINGS: Normal visualized distal femur. Normal visualized proximal tibia and fibula. Normal proximal tibiofibular articulation. There is no demonstrated fracture. Normal medial femorotibial compartment. Normal lateral femorotibial compartment. Normal patellofemoral articulation. The soft tissue structures are unremarkable. RAD/Knee 4 or More Views IMPRESSION: Normal x-ray examination of the knee. Electronically Signed: Harry Garvey MD at 9:10 EDT ,
[2024-05-18 07:59] VITALS: BP 140/78; PULSE 89; RESP 16; TEMP 36.6; O2SAT 99
== END 2024-05-18 08:02 | disposition home or self-care (01) ==
LOC: ED 07:51
PROVIDERS: Emergency Provider Emergency Medicine; PCP Family Medicine; Visit Provider Emergency Medicine
DX: S83.412A Sprain of medial collateral ligament of left knee, initial encounter (principal); S80.211A Abrasion, right knee, initial encounter; W10.9XXA Fall (on) (from) unspecified stairs and steps, initial encounter; Y92.59 Other trade areas as the place of occurrence of the external cause; E03.9 Hypothyroidism, unspecified; Z79.890 Hormone replacement therapy; Z79.899 Other long term (current) drug therapy
CPT/HCPCS: 73564; 99282

== ENCOUNTER → 2024-11-24 | Outpatient (CLI) | payer OTHER, SELFPAY ==
[2024-11-24 20:00] LABS: Estradiol 18.2 pg/mL; Follicle Stimulating Hormone 45.7 mIU/mL
== END | disposition home or self-care (01) ==
PROVIDERS: PCP Family Medicine; Referring Provider Nurse Practitioner Family; Visit Provider Nurse Practitioner Family
DX: N95.1 Menopausal and female climacteric states (principal)
CPT/HCPCS: 36415; 82670; 83001

== ENCOUNTER → 2024-12-11 | Outpatient (CLI) | payer OTHER, SELFPAY ==
--- NOTE | 2024-12-11 14:20 | BI_ITS ---
EXAM: SCRN MAMM (CAD)W/NEHA BILAT 12/11/2024 CLINICAL HISTORY: F, Age 49 y/o , SCREENING. No family history of breast cancer. TECHNIQUE: Bilateral screening digital breast tomosynthesis with 2D and 3D images. Computer aided detection. COMPARISON: Prior exam(s) dated 12/09/2023, 12/03/2022. FINDINGS: TISSUE DENSITY: The breast tissue is almost entirely fatty. Bilateral Breast Mammographic Findings: There is a mass in the slightly upper outer right breast at middle depth. No significant masses, calcifications or other abnormalities are identified in the left breast. BI/SCRN MAMM (CAD)W/NEHA BILAT IMPRESSION: The mass in the slightly upper outer right breast at middle depth requires furt her evaluation. Recommend diagnostic ultrasound of the right breast. OVERALL FINAL ASSESSMENT: BIRADS 0 Incomplete: Need additional imaging evaluati on and/or prior mammograms for comparison.. RECOMMENDATION: Recommendation: Ultrasound. A letter with findings and recommendations will be mailed to the patient. Reading Location: [id number]
== END | disposition home or self-care (01) ==
LOC: OPBI 14:18
PROVIDERS: PCP Family Medicine; Referring Provider Nurse Practitioner Family; Visit Provider Nurse Practitioner Family
DX: Z12.31 Encounter for screening mammogram for malignant neoplasm of breast (principal)
CPT/HCPCS: 77063; 77067

== ENCOUNTER → 2024-12-15 | Outpatient (CLI) | payer OTHER, SELFPAY ==
--- NOTE | 2024-12-15 07:52 | US_ITS ---
PROCEDURE: BREAST LIMITED UNILATERAL 12/15/2024 REASON FOR EXAM: DENSITY TECHNIQUE: Targeted left breast ultrasound. COMPARISON: 2D and 3D mammograms of December 11, 2004 and also December 09, 2023. FINDINGS: Left breast ultrasound was targeted to the outer breast . There is a tiny complex cyst having some internal echogenicity at mid depth in the right breast at 9 o'clock, about 3 cm from the nipple line. This can be seen on current and previous mammograms as a minimal soft tissue density. Areas of scar with scattered calcification are seen along the lower breast due to the previous history of reduction mammoplasty. No suspicious mass is identified. The breast tissue appears otherwise sonographically normal. US/Breast Limited Unilateral IMPRESSION: Impression: Benign findings as described. Birads: 2, benign. Reading Location: [place] [id number]
== END | disposition home or self-care (01) ==
LOC: OPUS 07:49
PROVIDERS: PCP Family Medicine; Referring Provider Nurse Practitioner Family; Visit Provider Nurse Practitioner Family
DX: R92.30 Dense breasts, unspecified (principal)
CPT/HCPCS: 76642

== ENCOUNTER → 2025-02-25 | Outpatient (CLI) | payer OTHER, SELFPAY ==
[2025-02-25 10:35] LABS: Absolute Lymphocyte Count 2.86 X10^3/uL (0.83-4.51); Absolute Neutrophil Count 5.7 X10^3/uL (2.0-7.7); Eosinophil# 0.25 X10^3/uL; Eosinophils% 2.5 % (0-5); Hematocrit 44.1 % (37-47); Hemoglobin 14.7 g/dL (12.0-15.0); Lymphocyte # 2.86 X10^3/ul (0.83-4.51); Mean Corp Hgb Conc 33.3 g/dL (32-36); Mean Corpuscular Hgb 29.4 pg (27.0-32.0); Mean Corpuscular Volume 88.2 fL (81-99); Mean Platelet Vol. 12.1 fl (6.2-12.0); Monocyte# 0.88 X10^3/uL; Monocyte% 8.9 % (0-10); NRBC Flagged by Analyzer 0 % (0-5); Neutrophil # 5.74 X10^3/uL (2.7-7.7); Neutrophil % 58.2 % (47-70); Platelet Count 270 K/mm3 (150-450); RBC Distribution Width CV 14.1 % (11.6-14.6); RBC Distribution Width SD 45.1 fl (35.1-43.9); White Blood Count 9.9 K/mm3 (4.4-11.0)
[2025-02-25 11:00] LABS: ALB/GLOB Ratio 1.1 RATIO (0.9-2.4); AST(SGOT) 24 U/L (<=31); Alanine Aminotransfer ALT/SGPT 25 U/L (<=34); Albumin, Serum 4.2 g/dL (3.5-5.0); Alkaline Phosphatase 142 U/L (35-104); Anion Gap 13 (5-15); BUN 8 mg/dL (4-19); BUN/Creat Ratio 13.6 RATIO (10-20); Calcium,Total 9.4 mg/dL (7.6-11.0); Carbon Dioxide 21.8 mmol/L (21.0-32.0); Chloride 104 mmol/L (98-108); Cholesterol 194 mg/dL (<=200); Creatinine, Serum 0.59 mg/dL (0.70-1.20); EST Glomerular Filtration Rate 110 (>60); Globulin 3.8 g/dL (2.2-4.2); Glucose 91 mg/dL (70-99); High Density Lipoprotein 46 mg/dL; Low Density Lipoprotein Calc. 123 mg/dL; Potassium 3.9 mmol/L (3.3-5.1); Protein, Total 7.9 g/dL (5.9-8.4); Sodium Level 138 mmol/L (133-145); Thyroid Stim Hormone (TSH) 0.889 uIU/mL (0.300-4.200); Total Bilirubin 0.59 mg/dL (0.00-1.30); Triglycerides 125 mg/dL; Very Low Density Lipoprotein 25 mg/dL (5-40); Vitamin D,25 Hydroxy 38.6 ng/mL (30-100); cholesterol:hdl ratio screen 4.24
== END | disposition home or self-care (01) ==
LOC: MTLAB 08:49
PROVIDERS: PCP Family Medicine; Referring Provider Nurse Practitioner Family; Visit Provider Nurse Practitioner Family
DX: Z00.00 Encounter for general adult medical examination without abnormal findings (principal); E03.9 Hypothyroidism, unspecified; E55.9 Vitamin D deficiency, unspecified
CPT/HCPCS: 36415; 80053; 80061; 82306; 84439; 84443; 84481; 85025